=== PATIENT | female | born 1980 | race Caucasian/White ===

== ENCOUNTER 2016-10-20 09:02 | Day surgery (SDC) | payer OTHER ==
[2016-10-17 18:24] VITALS: BMI 29.6
[2016-10-20] VITALS (9 sets, daily range): BP systolic 100–116; BP diastolic 49–66; PULSE 60–69; RESP 15–19; Ht 160 cm; Wt 75.8 kg
[~2016-10-20] VITALS: Ht 160 cm; Wt 75.8 kg
[~2016-10-20 09:02] MED LIST: BUPIVACAINE 0.25%/EPI (SDV) 30 ML INJ INJ ONE; CEFAZOLIN 2 GM/50 ML (PMX) 50 ML IVPB SCH; SOD CHLORIDE 0.9% 1,000 ML IV SCH
[2016-10-20] MEDS ORDERED: BUPIVACAINE 0.25%/EPI (SDV) 30 ML INJ ONE (11:22)
[2016-10-20] MEDS ORDERED: ALBUTEROL 0.083% (NEB) 2.5 MG/3 ML AMP HHN ONE (11:30)
[2016-10-20] MEDS ORDERED: OXYCODONE/ACETAMINOPHEN (5/325) TAB PO PRN (11:30)
[2016-10-20] MEDS ORDERED: HYDROmorphONE (0.2 MG/ML) 10ML SYG IV PRN ×2 (11:30)
[2016-10-20] MEDS ORDERED: FENTAnyl 50 MCG/ML VIAL IV PRN ×2 (11:30)
[2016-10-20] MEDS ORDERED: DIPHENHYDRAMINE 50 MG INJ IV PRN (11:30)
[2016-10-20] MEDS ORDERED: ONDANSETRON 4 MG INJ IV PRN ×2 (11:30→13:00)
[2016-10-20] MEDS ORDERED: METOCLOPRAMIDE 10 MG INJ IV PRN (11:30)
[2016-10-20] MEDS ORDERED: MEPERIDINE 25 MG INJ IV PRN (11:30)
[2016-10-20] MEDS ORDERED: FENTAnyl 50 MCG/ML VIAL ONE (11:34)
[2016-10-20] MEDS ORDERED: LIDOCAINE 2% (SDV) 5 ML INJ ONE (12:07)
[2016-10-20] MEDS ORDERED: ROCURONIUM 50 MG INJ ONE (12:07)
[2016-10-20] MEDS ORDERED: NEOSTIGMINE 3 MG/3 ML SYRINGE ONE (12:07)
[2016-10-20] MEDS ORDERED: SUCCINYLCHOLINE CHLORIDE 100 MG/5 ML SYG IV ONE (12:07)
[2016-10-20] MEDS ORDERED: ROPIVACAINE 0.5 % 30 ML VIAL ONE (12:07)
[2016-10-20] MEDS ORDERED: PROPOFOL 20 ML ONE (12:07)
[2016-10-20] MEDS ORDERED: CEFAZOLIN 1 GM INJ ONE (12:07)
[2016-10-20] MEDS ORDERED: GLYCOPYRROLATE 0.4 MG INJ ONE (12:07)
[2016-10-20] MEDS ORDERED: morphine 4 MG/ML VIAL IV PRN (13:00)
[2016-10-20] MEDS ORDERED: HYDROCODONE/APAP (5/325) TAB PO PRN ×2 (13:00)
[2016-10-20] MEDS ORDERED: KETOROLAC 30 MG INJ IV PRN (13:00)
--- NOTE | 2016-10-20 13:03 | OPR ---
Date/Time of Note Date/Time of Note DATE: 10/20/16 TIME: 12:55 Operative Report Procedure Date: Oct 20, 2016 Preoperative Diagnosis Chronic Cholecystitis/Cholelithiasis Postoperative Diagnosis Chronic Cholecystitis/Cholelithiasis Operation Performed Laparoscopic Cholecystectomy Surgeon: RUPESH FIGUEROA MD Anesthesia: general Anesthesiologist: MARIIA WALSH Estimated Blood Loss: minimal Specimens Gallbladder Complications: None Pt Condition Post Procedure: stable Indications The patient is a 35-year-old female who presented to the office with a six month history of right upper quadrant abdominal pain. The patient had clinical signs and symptoms of chronic cholecystitis and biliary colic which was confirmed via an ultrasound which showed the presence of gallstones. The patient was scheduled for laparoscopic cholecystectomy; possible open as definitive treatment to prevent further sequelae of gallstone disease which include but are not limited to: Gangrenous cholecystitis, choledocholithiasis, gallstone pancreatitis, ascending cholangitis, etc. All risks and benefits of the procedure including but not limited to: Wound infection, excessive bleeding , common bile duct injury, postoperative biliary leak, retained common bile duct stone, injury to intra-abdominal organs, conversion to open procedure, possible need for subsequent surgeries, etc. were all explained to the patient in full detail. She fully understood and wished to proceed with the procedure. Informed consent was therefore obtained. Operative\Procedure Findings Changes consistent with chronic cholecystitis Procedure Description The patient was brought to the operating room and placed supine on the operating table. Bilateral sequential compression devices were placed on both lower extremities. A dose of broad spectrum theodore-operative antibiotics was given. After the induction of smooth general endotracheal anesthesia the patient 's abdomen was prepped and draped in the standard surgical fashion. After performance of the surgical timeout a 5 mm incision was made in the inferior umbilicus and a Veress needle was used to access the intra-abdominal cavity atraumatically. Pneumoperitoneum was then obtained and the Veress needle was exchanged for a 5 mm trocar through which a 5 mm laparoscope was placed. Three further working ports were then placed a 12 mm port in the sub-xiphoid region and two 5 mm ports in the right upper quadrant. All port sites were anesthetized with 0.25% Marcaine with epinephrine prior to incision. Using atraumatic graspers the gallbladder was grasped and retracted superiorly and laterally exposing the area of Mercer's pouch. There were adhesions of the omentum to the anterior surface of the gallbladder. These were taken down using a [place] dissector and hook electrocautery. Dissection was then begun in the area of the triangle of Calot using a combination of blunt dissection and hook electrocautery. The cystic duct was identified as it entered straight into the neck of the gallbladder. It was dissected free of surrounding tissues and clipped proximally and distally x 3 and transected using EndoShears. Dissection was then continued posteriorly. The cystic artery was identified and dissected free of surrounding tissues. It too was clipped proximally x 2 and transected distally using the hook electrocautery. The gallbladder was then dissected off the liver bed using electrocautery. Once completely free the gallbladder was placed in an Endo Catch bag and withdrawn through the subxiphoid port site and passed off the field as specimen. Hemostasis was then inspected for and noted to be total. The abdomen was then irrigated with several liters of warm normal saline and the irrigant returned crystal clear. The fascia of the subxiphoid port site was then reapproximated using an endo-close device and 0-Vicryl suture. Pneumoperitoneum was then released and all remaining trochars were withdrawn under direct vision. The subcutaneous tissues were irrigated with more warm normal saline. The skin was then reapproximated using 4-0 Monocryl sutures in subcuticular fashion. The incisions were cleaned and Dermabond was applied to the incisions and the patient was awoken from anesthesia and transported to the recovery room in stable condition. All counts were correct at the end of the case x 2. RUPESH FIGUEROA MD Oct 20, 2016 13:03
[2016-10-20] MEDS: HYDROmorphONE (0.2 MG/ML) 10ML SYG IV PRN ×2 (13:18→13:29)
--- NOTE | 2016-10-20 13:27 | HPN ---
Date/Time of Note Date/Time of Note DATE: 10/20/16 TIME: 13:27 Interval H&P Admission Note Pt. seen H&P reviewed: No system changes RUPESH FIGUEROA MD Oct 20, 2016 13:27
[2016-10-20] MEDS ORDERED: IBUPROFEN 600 MG TAB PO PRN (23:00)
== END 2016-10-20 15:30 | disposition home or self-care (01) ==
LOC: SDS 09:02
PROVIDERS: ATTEND Surgery
DX: K80.10 Calculus of gallbladder with chronic cholecystitis without obstruction (principal); E66.9 Obesity, unspecified; Z68.29 Body mass index [BMI] 29.0-29.9, adult
CPT/HCPCS: 47562; 84703; 88304; J0690; J1170; J1885; J2405; J2710; J2795; J3010; J7999; Z7512; Z7610